=== PATIENT | female | born 2005 | race African-American/Black ===

== ENCOUNTER 2023-04-25 11:16 | Emergency (ER) | payer BC, MEDICAID ==
[~2023-04-25] VITALS: Ht 170.2 cm; Wt 109.0 kg
[2023-04-25 11:25] VITALS: O2SAT 100
[2023-04-25] MEDS ORDERED: DEXAMETHASONE 10 MG/ML VIAL PO ONE (13:45)
[2023-04-25] MEDS ORDERED: KETOROLAC 30MG/ML VIAL IM ONE (13:45)
[2023-04-25 17:11] LABS: CLARITY URINE CLEAR (CLEAR); COLOR URINE YELLOW (YELLOW); GLUCOSE URINE NEGATIVE (NEGATIVE); KETONES URINE NEGATIVE (NEGATIVE); LEUKOCYTE ESTERASE URINE NEGATIVE (NEGATIVE); NITRITE URINE NEGATIVE (NEGATIVE); OCCULT BLOOD URINE NEGATIVE (NEGATIVE); PROTEIN URINE NEGATIVE (NEGATIVE); SPECIFIC GRAVITY URINE 1.006 (1.005-1.030); UROBILINOGEN URINE 0.2 E.U./dL (0.2-1.0)
[2023-04-25] MEDS ORDERED: ONDA4TAB11 PO (17:31)
[2023-04-25] MEDS ORDERED: NAPR-679 MT (17:31)
[2023-04-25] MEDS ORDERED: BENZ100C86 MT (17:35)
[2023-04-25 17:54] VITALS: BP 137/87; PULSE 81; RESP 20; TEMP 98.5
== END 2023-04-25 17:55 | disposition home or self-care (01) ==
LOC: ER 11:16
DX: J06.9 Acute upper respiratory infection, unspecified (principal); J02.9 Acute pharyngitis, unspecified; J45.909 Unspecified asthma, uncomplicated; Z91.013 Allergy to seafood
CPT/HCPCS: 81003; 81025; 87430; 87070; 96372; 99283; J1100; J1885; Z7610